=== PATIENT | male | born 1980 | race Two or more races ===

== ENCOUNTER → 2017-10-11 | Emergency (ER) | payer OTHER ==
[~2017-10-11] VITALS: Ht 175.3 cm; Wt 83.9 kg
[~2017-10-11] MED LIST: PENICILLAMINE(D-5 GM; TUSSI PRES-B L120 M1 PO; ZITHROMAX TRI-500 MG PO
== END | disposition home or self-care (01) ==
LOC: ER 12:40
DX: B34.9 Viral infection, unspecified (principal)

== ENCOUNTER 2018-04-19 14:53 | Emergency (ER) | payer OTHER ==
[~2018-04-19] VITALS: Ht 177.8 cm; Wt 86.2 kg
== END 2018-04-19 18:36 | disposition home or self-care (01) ==
LOC: ER 14:53
DX: B02.9 Zoster without complications (principal)

== ENCOUNTER 2018-07-29 14:38 | Emergency (ER) | payer OTHER ==
[~2018-07-29] VITALS: Ht 177.8 cm; Wt 86.2 kg
== END 2018-07-29 22:30 | disposition home or self-care (01) ==
LOC: ER 14:38
DX: K52.89 Other specified noninfective gastroenteritis and colitis (principal)

== ENCOUNTER 2019-04-29 11:00 | Emergency (ER) | payer OTHER ==
[~2019-04-29] VITALS: Ht 177.8 cm; Wt 86.2 kg
[2019-04-29] MEDS ORDERED: CIPRO500 MG PO (17:30)
[2019-04-29] MEDS ORDERED: PEPCID20 MG PO (17:30)
== END 2019-04-29 22:10 | disposition home or self-care (01) ==
LOC: ER 11:00
DX: R19.7 Diarrhea, unspecified (principal)

== ENCOUNTER 2022-12-17 21:38 | Emergency (ER) | payer OTHER ==
[~2022-12-17] VITALS: Ht 175.3 cm; Wt 86.2 kg
[~2022-12-17 21:38] MED LIST changes: +CIPRO500 MG PO; +PEPCID20 MG PO
[2022-12-18] MEDS ORDERED: ZYNCOF 20-400120 ML PO (02:20)
[2022-12-18] MEDS ORDERED: PHENAGIL TABLE1 EACH PO (02:20)
[2022-12-18] MEDS ORDERED: DOLOGESIC 500-1 EACH PO (02:20)
== END 2022-12-18 02:56 ==
LOC: ER 21:38
DX: B34.9 Viral infection, unspecified (principal); Z20.822 Contact with and (suspected) exposure to COVID-19